=== PATIENT | female | born 1975 | race Caucasian/White ===

== ENCOUNTER 2017-02-05 11:13 | Emergency (ER) | payer BC ==
[~2017-02-05] VITALS: Ht 177.8 cm; Wt 88.5 kg
[~2017-02-05 11:13] MED LIST: HYD25 PO; IBUP-1542 PO; LISI20TA11 PO
[2017-02-05 11:22] VITALS: Ht 177.8 cm; Wt 88.5 kg
[2017-02-05] MEDS ORDERED: KETOROLAC 15 MG INJ IV STA (11:54)
[2017-02-05] MEDS ORDERED: SOD CHLORIDE 0.9% 1,000 ML IV STA (11:54)
[2017-02-05 13:03] LABS: BASOPHIL # 0.1 10^3/ul (0.0-0.1); BASOPHILS % 0.6 % (0.0-2.0); EOSINOPHILS # 0.1 10^3/ul (0.0-0.5); EOSINOPHILS % 0.8 % (0.0-7.0); HEMATOCRIT 37.2 % (37.0-47.0); HEMOGLOBIN 12.3 g/dl (12.0-16.0); LYMPHOCYTES # 2.1 10^3/ul (0.8-2.9); LYMPHOCYTES % 17.8 % (15.0-51.0); MEAN CORPUSCULAR HEMOGLOBIN 28.3 pg (29.0-33.0); MEAN CORPUSCULAR HGB CONC 33.1 g/dl (32.0-37.0); MEAN CORPUSCULAR VOLUME 85.5 fl (82.0-101.0); MEAN PLATELET VOLUME 11.8 fl (7.4-10.4); MONOCYTE # 0.8 10^3/ul (0.3-0.9); NEUTROPHILS % 73.4 % (39.0-77.0); PLATELET COUNT 295 10^3/UL (140-415); RED BLOOD COUNT 4.35 10^6/ul (4.20-5.40); WHITE BLOOD COUNT 11.9 10^3/ul (4.8-10.8)
[2017-02-05 13:13] LABS: INR 0.92; PROTIME 12.4 Sec (12.2-14.2)
[2017-02-05] MEDS ORDERED: NAPR-260 PO (13:15)
[2017-02-05 13:17] LABS: ALBUMIN 4.7 g/dl (3.3-4.9); ALBUMIN/GLOBULIN RATIO 1.23; BILIRUBIN,INDIRECT 0.8 mg/dl (0-1.1); BILIRUBIN,TOTAL 0.8 mg/dl (0.2-1.3); CALCIUM 9.5 mg/dl (8.4-10.2); CREATININE 0.81 mg/dl (0.44-1.00); POTASSIUM 3.9 mmol/L (3.5-5.1); TOTAL PROTEIN 8.5 g/dl (6.1-8.1)
--- NOTE | 2017-02-05 13:18 | RADRPT ---
PROCEDURE: US Pelvis. CLINICAL INDICATION: Vaginal bleeding and pelvic cramping TECHNIQUE: Multiple sonographic images of the pelvis were obtained utilizing a transabdominal and endovaginal technique. The images were reviewed on a PACS workstation. COMPARISON: None FINDINGS: The uterus is visualized and measures 9.2 cm. The uterus is heterogeneous with multiple hypoechoic a reas, the largest measuring up to 1.9 cm. There is a hemorrhagic Nabothian cyst, which measures up to 8 mm. The endometrial echo complex is normal and measures 12 mm. There is no evidence for free f luid. The right ovary has a normal echotexture and measures 2.3 cm . The left ovary it is not visua lized. No adnexal masses are noted. IMPRESSION: Heterogeneous uterus with multiple hypoechoic areas suggestive of adenomyosis. Hemorrhagic Nabothian cyst, which measures up to 8 mm. The left ovary is not visualized on this exam. RPTAT: QQ Physician Donavan Date Time Electronically viewed and signed by Physician Donavan on 02/05/2017 13:17 /
[2017-02-05] MEDS ORDERED: OXYCODONE/ACETAMINOPHEN (5/325) TAB PO ONE (13:30)
[2017-02-05 13:37] LABS: ADD UMIC YES; UR ASCORBIC ACID NEGATIVE (NEGATIVE); UR BILIRUBIN (Dip) NEGATIVE (NEGATIVE); UR BLOOD (Dip) 3+ mg/dL (NEGATIVE); UR CLARITY CLEAR (CLEAR); UR COLOR YELLOW (YELLOW); UR GLUCOSE (Dip) NEGATIVE (NEGATIVE); UR KETONES (Dip) NEGATIVE (NEGATIVE); UR LEUKOCYTE ESTERASE (Dip) NEGATIVE Leu/ul (NEGATIVE); UR NITRITE (Dip) NEGATIVE (NEGATIVE); UR RBC 16 /HPF (0-5); UR SPECIFIC GRAVITY (Dip) 1.016 (1.003-1.030); UR TOTAL PROTEIN (Dip) NEGATIVE (NEGATIVE); UR UROBILINOGEN (Dip) NEGATIVE (NEGATIVE)
--- NOTE | 2017-02-05 14:19 | ERD ---
ER Documentation Chief Complaint Date/Time DATE: 02/05/17 TIME: 14:15 Chief Complaint Complains of vag bleed and abdominal pain x 3 days HPI 41-year-old woman complains of pelvic cramping 3 days with the onset of menstruation, she also complains of heavy vaginal bleeding. She has had similar symptoms in the past, pelvic pain is bilateral but worse on the right compared to the left, she has had no fevers or chills, no dysuria, no chest pain or shortness of breath, no loss of consciousness ROS All systems reviewed and are negative except as per history of present illness. Medications Home Meds Active Scripts Naproxen* (Naprosyn*) 500 Mg Tablet, 500 MG PO BID Y for PAIN AND/OR INFLAMMATION, #30 TAB Prov:IRMA HUNTER MD 02/05/17 Ibuprofen* (Ibuprofen*) 600 Mg Tablet, 600 MG PO Q8 for PAIN, #30 TAB Prov:IRMA HUNTER MD 11/12/15 Reported Medications Hydrochlorothiazide* (Hydrochlorothiazide*) 25 Mg Tab, 25 MG PO DAILY, #30 TAB 11/12/15 Lisinopril* (Lisinopril*) 20 Mg Tablet, 20 MG PO DAILY, #30 TAB 11/12/15 Allergies Allergies: Coded Allergies: No Known Allergy (Unverified , 11/12/15) PMhx/Soc None History of Surgery: No Anesthesia Reaction: No Hx Neurological Disorder: No Hx Respiratory Disorders: No Hx Cardiac Disorders: Yes (HTN) Hx Psychiatric Problems: No Hx Miscellaneous Medical Probl: No Hx Alcohol Use: No Hx Substance Use: No Hx Tobacco Use: No Smoking Status: Never smoker FmHx Family History: No diabetes Physical Exam Vitals Vital Signs Date Time Temp Pulse Resp B/P Pulse Ox O2 Delivery O2 Flow Rate FiO2 02/05/17 13:28 97.8 78 16 118/65 96 Room Air 02/05/17 11:22 98.2 92 20 118/72 98 Physical Exam GENERAL: Well-developed, well-nourished, well-hydrated, in no apparent distress , looks nontoxic in appearance HEENT: Moist mucous membranes, pink conjunctiva, no cervical spine tenderness or step-off deformities, no goiter, no jaundice or icterus, extraocular movements intact without pain. No submandibular induration, and no pharyngeal erythema NEURO: Alert and oriented 3, cranial nerves II through XII intact bilaterally, pupils equal round reactive to light, no focal deficits or facial asymmetry, sensation intact distally Strength 5/5 in upper and lower extremities bilaterally CARDIAC: Regular rate and rhythm, no murmurs rubs or gallops LUNGS: Clear bilaterally no wheezing crackles or stridor ABDOMEN: Soft nontender, no guarding, no rigidity, no rebound, no psoas sign no obturator sign. Normoactive bowel sounds SKIN: Warm and dry to touch, no abrasions, contusions, or hematomas, no lacerations, no ecchymosis, no target lesions, and without ulcers EXTREMITIES: No clubbing cyanosis or edema, calves are bilaterally symmetrical, no Homans sign, no popliteal cord sign. Distal pulses equal and bilateral PSYCH: Normal affect without agitation or irritability Result Diagram: 02/05/17 1218 02/05/17 1218 Results 24 hrs Laboratory Tests Test 02/05/17 12:18 White Blood Count 11.910^3/ul Red Blood Count 4.3510^6/ul Hemoglobin 12.3g/dl Hematocrit 37.2% Mean Corpuscular Volume 85.5fl Mean Corpuscular Hemoglobin 28.3pg Mean Corpuscular Hemoglobin Concent 33.1g/dl Red Cell Distribution Width 13.0% Platelet Count 63412^3/UL Mean Platelet Volume 11.8fl Neutrophils % 73.4% Lymphocytes % 17.8% Monocytes % 7.0% Eosinophils % 0.8% Basophils % 0.6% Nucleated Red Blood Cells % 0.0/100WBC Neutrophils # (Manual) 8.810^3/ul Lymphocytes # 2.110^3/ul Monocytes # 0.810^3/ul Eosinophils # 0.110^3/ul Basophils # 0.110^3/ul Nucleated Red Blood Cells # 0.010^3/ul Prothrombin Time 12.4Sec Prothrombin Time Ratio 1.0 INR International Normalized Ratio 0.92 Urine Color YELLOW Urine Clarity CLEAR Urine pH 5.0 Urine Specific [place] 1.016 Urine Ketones NEGATIVEmg/dL Urine Nitrite NEGATIVEmg/dL Urine Bilirubin NEGATIVEmg/dL Urine Urobilinogen NEGATIVEmg/dL Urine Leukocyte Esterase NEGATIVELeu/ul Urine Microscopic RBC 16/HPF Urine Microscopic WBC 3/HPF Urine Hemoglobin 3+mg/dL Urine Glucose NEGATIVEmg/dL Urine Total Protein NEGATIVEmg/dl Sodium Level 141mmol/L Potassium Level 3.9mmol/L Chloride Level 97mmol/L Carbon Dioxide Level 24mmol/L Anion Gap 24 Blood Urea Nitrogen 16mg/dl Creatinine 0.81mg/dl Glucose Level 109mg/dl Calcium Level 9.5mg/dl Total Bilirubin 0.8mg/dl Direct Bilirubin 0.00mg/dl Indirect Bilirubin 0.8mg/dl Aspartate Amino Transf (AST/SGOT) 25IU/L Alanine Aminotransferase (ALT/SGPT) 38IU/L Alkaline Phosphatase 61IU/L Total Protein 8.5g/dl Albumin 4.7g/dl Globulin 3.80g/dl Albumin/Globulin Ratio 1.23 Lipase 63U/L Current Medications Medications (Trade) Dose Ordered Sig/[place]ordo Route PRN Reason Start Time Stop Time Status Last Admin Dose Admin Sodium Chloride (NS) 1,000 ml @ 1,000 mls/hr Q1H STAT IV 02/05/17 11:54 02/05/17 12:53 DC 02/05/17 12:27 Ketorolac Tromethamine (Toradol) 15 mg ONCE STAT IV 02/05/17 11:54 02/05/17 11:56 DC 02/05/17 12:27 Oxycodone/ Acetaminophen (Percocet (5/ 325)) 1 tab ONCE ONCE PO 02/05/17 13:30 02/05/17 13:31 DC 02/05/17 13:26 Procedures/MDM IV line was established patient was placed on equipment monitor phototypesetting rhythm strip revealed a sinus rhythm at about 80 beats. Patient was afebrile. I administered 1 L normal saline intravenously and Toradol 15 mg IV 1 with good pain control. Later discomfort she was given Percocet 1 tablet p.o. with resolution of pain. Nonobstetric pelvic ultrasound was negative for ovarian torsion, hemorrhagic ovarian or fallopian cyst, or other pathologic processes. Please refer to radiologist dictation for full report. CBC and electrolytes are normal, liver function tests normal, urinalysis negative for infection, test negative. Differential diagnoses considered, included but not limited to acute coronary syndrome, pulmonary embolism, aortic dissection, abdominal aortic aneurysm, sepsis, stroke, meningitis, encephalitis, pneumonia, appendicitis, cholecystitis , bowel obstruction, pyelonephritis, nephrolithiasis, cystitis, as well as metabolic, hematologic, and electrolyte abnormalities. As well as abscess, cellulitis, fractures, and dislocations. Patient feels much better at this time, and vital signs are normal, symptoms have improved. I did give strict instructions to return to the ED if symptoms continue or worsen, patient will otherwise follow-up with primary care physician. Patient understood instructions and agreed to plan. Disclaimer: Inadvertent spelling and grammatical errors are likely due to EHR/ dictation software use and do not reflect on the overall quality of patient care. Also, please note that the electronic time recorded on this note does not necessarily reflect the actual time of the patient encounter. Departure Diagnosis: Primary Impression: Vaginal bleeding Additional Impression: Dysmenorrhea Condition: Good Patient Instructions: Menorrhagia, Pelvic Pain, Unknown Cause IRMA HUNTER MD Feb 05, 2017 14:18
[2017-02-05 14:35] VITALS: BP 120/85; PULSE 75; RESP 16; TEMP 98.1
== END 2017-02-05 14:37 | disposition home or self-care (01) ==
LOC: E/R 11:13
DX: R10.2 Pelvic and perineal pain (principal); N94.6 Dysmenorrhea, unspecified; I10 Essential (primary) hypertension
CPT/HCPCS: 36415; 76830; 76856; 80053; 81001; 83690; 85025; 85610; 96374; 99285; J1885; J7030

== ENCOUNTER 2017-07-05 21:35 | Emergency (ER) | END 2017-07-06 02:04 | disposition home or self-care (01) ==